=== PATIENT | female | born 1960 | race Caucasian/White ===

== ENCOUNTER → 2017-03-05 | Outpatient (CLI) | payer MEDICARE, MEDICAID ==
[~2017-03-05] MED LIST: AMBIEN 5MG TAB5 MG PO; ANTIVERT GENERI25 MG PO; ASPIRIN ADULT L81 M2 PO; ATIVAN1 MG PO; AVPAK PRIMIDONE50 MG PO; BACLOFEN 10MG T10 MG; BACTRIM DS 8001 TAB PO; CLARITIN 10MG T10 MG PO; CYMBALTA30 MG PO; DIAZEPAM5 M1 PO; ELIQUIS5 MG PO; K-DUR 2020 MEQ PO; LEVSIN0.125 MG PO; LIPITOR10 MG PO; LORTAB 5/500 501 TAB PO; LORTAB 500 MG PO; MAXZIDE 25 MG-31 TAB PO; MAXZIDE 37.5/21 EACH PO; MIRAPEX 0.120.125 MG PO; NEXIUM40 MG PO; PERCOGESIC1 TAB PO; PHENERGAN 25MG.25 M1 PO; POTASSIUM CHLO10 ME3 PO; PRILOSEC10 MG PO; Prochlorperazin10 MG PO; TRIAMT/HCTZ TAB 37. PO
--- NOTE | 2017-03-05 10:46 | RADIOLOGY REPORT PS360 ---
CHEST(2 VIEWS-NOT PORTABLE) HISTORY: SOB, RT SIDED CHEST PAIN ORDERING PHYSICIAN: Omar Squires MD PATIENT AGE: 57 years COMPARISON: 03/12/2015 FINDINGS: Unremarkable cardiovascular structures. There is a mild prominence of the mediastinum which may be related to ectasia of the ascending aorta. There are low lung volumes with atelectatic changes in the lung bases. No acute bony findings. Postsurgical changes left shoulder. IMPRESSION: Bibasilar atelectatic changes. Mild prominence of mediastinum which may be related to aortic ectasia/tortuosity.
[2017-03-05 11:47] LABS: BUN 21 mg/dL (7-18)
[2017-03-05 11:50] LABS: GFR (ESTIMATED) 86 ML/MIN (59-)
--- NOTE | 2017-03-05 13:06 | RADIOLOGY REPORT PS360 ---
CTA-CHEST HISTORY: Shortness of breath, DVT, chest pain SHORTNESS OF BREATH,H/O DVT,CHEST PAIN AT REST ORDERING PHYSICIAN: Omar Squires MD PATIENT AGE: 57 years TECHNIQUE: Helical acquisition obtained following the bolus administration of 60 mL of Isovue 370 followed by a saline bolus. Axial, sagittal, and coronal reformatted images are generated and reviewed. COMPARISON: 03/02/2015 FINDINGS: No evidence of pulmonary embolus, no evidence of aortic aneurysm or dissection. Normal heart size. Soft tissue density is present in the subcarinal region at 2.7 x 1.7 cm unchanged consistent with lymph nodes which are stable. There are atelectatic changes in the lung bases. Chest x-ray recently showed mild prominence of the mediastinum. No new mediastinal mass or new adenopathy is evident. There is mild tortuosity of the ascending aorta accounting for the mild prominence of the mediastinum. No evidence of aneurysm or dissection. No acute bony anomalies. Upper abdominal images are unremarkable. IMPRESSION: 1. No evidence of pulmonary embolus or aortic aneurysm. 2. Bibasilar atelectatic changes.
== END ==
LOC: LAB 10:25 → RAD 10:25
PROVIDERS: Family Medicine
DX: R07.9 Chest pain, unspecified (principal); R06.00 Dyspnea, unspecified; Z86.718 Personal history of other venous thrombosis and embolism
CPT/HCPCS: Q9967

== ENCOUNTER 2017-03-24 20:09 | Emergency (ER) | payer MEDICARE, MEDICAID ==
[~2017-03-24] VITALS: Ht 165.1 cm; Wt 140.6 kg
[2017-03-24 20:27] LABS: URINE BILIRUBIN - DIPSTICK NEGATIVE (NEG); URINE BLOOD NEGATIVE (NEG)
[2017-03-24 20:44] LABS: HEMOGLOBIN 14.7 g/dL (12.2-16.2); LYMPH # 2.4 K/mm3 (0.7-4.5); LYMPH % 23.3 % (10-50.0)
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
[2017-03-24 22:15] VITALS: BP 115/67
--- NOTE | 2017-03-25 06:39 | RADIOLOGY REPORT PS360 ---
CT ABD PELVIS W/O CONTRAST CLINICAL INDICATION: Right lower quadrant pain ABDOMINAL PAIN ORDERING PHYSICIAN: Arthur Bellamy MD PATIENT AGE: 57 years COMPARISON: 05/23/2012 TECHNIQUE: Axial images obtained with sagittal and coronal reformats. PROCEDURE: Oral Contrast: None IV Contrast: None . FINDINGS: Lower thorax: Atelectatic changes ABDOMEN: Liver: Diffuse heterogeneous density of the liver consistent with hepatic steatosis with some sparing in the periportal region. Gallbladder: Cholecystectomy. No biliary dilatation. Pancreas: No masses or peripancreatic fluid collections. Spleen: Unremarkable. Adrenals: Unremarkable Kidneys/ureters: No masses. No renal calculi. No hydronephrosis. No perinephric fluid collections. No ureteral dilatation or obvious ureteral calculi. Stomach bowel: Nondistended. No obvious mass or thickening. Colonic diverticulosis. No evidence of diverticulitis Appendix: No evidence of appendicitis. PELVIS: Reproductive: Hysterectomy Bladder: Nondistended. No obvious stones or masses. ABDOMEN & PELVIS: Peritoneum: No abnormal fluid collections. No obvious inflammatory changes. No free air. Lymph nodes: No enlarged lymph nodes apparent. Vasculature: No evidence of abdominal aortic aneurysm. No retroperitoneal hemorrhage evident. Bones: No acute fracture IMPRESSION: 1. No acute intra-abdominal or pelvic findings. 2. Hepatic steatosis. 3. Colonic diverticulosis without diverticulitis
== END 2017-03-24 22:16 | disposition home or self-care (01) ==
LOC: ER 20:09
PROVIDERS: Emergency Medicine
DX: R10.31 Right lower quadrant pain (principal); I10 Essential (primary) hypertension; Z79.899 Other long term (current) drug therapy; Z87.891 Personal history of nicotine dependence
CPT/HCPCS: J2405

== ENCOUNTER → 2017-05-03 | Outpatient (CLI) | payer MEDICARE, MEDICAID ==
[2017-05-03 13:58] LABS: HEMOGLOBIN 13.7 g/dL (12.2-16.2); LYMPH # 1.5 K/mm3 (0.7-4.5); LYMPH % 13.3 % (10-50.0)
[2017-05-03 15:48] LABS: BUN 24 mg/dL (7-18); GFR (ESTIMATED) 74 ML/MIN (59-)
[2017-05-04 08:38] LABS: Thyroid Peroxidase (TPO) Ab 12 IU/mL (0-34); Vitamin D, 25-Hydroxy 17.6 ng/mL (30.0-100.0)
[2017-05-04 14:37] LABS: t-Transglutaminase (tTG) IgA <2 U/mL (0-3)
[2017-05-06 16:40] LABS: Thyroglobulin Antibody <1.0 IU/mL (0.0-0.9)
[2017-05-07 10:39] LABS: Antinuclear Antibodies, IFA Negative (.)
[2017-05-09 07:50] LABS: RETICULIN IGA ANTIBODIES NEGATIVE TITER (<1:10)
== END ==
LOC: LAB 12:32
PROVIDERS: Allergy & Immunology
DX: L29.9 Pruritus, unspecified (principal); E55.9 Vitamin D deficiency, unspecified